=== PATIENT | female | born 1985 | race Caucasian/White ===

== ENCOUNTER 2017-12-01 20:29 | Inpatient (IN) | payer OTHER ==
[2017-12-01 21:21] VITALS: BMI 39.1
[2017-12-01] MEDS ORDERED: Penicillin G 5 Million Unit Vial IVPB ONE ×2 (21:21→22:04)
[2017-12-01] MEDS ORDERED: Lactated Ringer's 1,000 ML IV SCH ×2 (21:30)
[2017-12-01 22:02] LABS: BASO # 0.1 K/uL (0.0-0.2); BASO % 0.6 % (0.0-2.0); EOS # 0.1 K/uL (0.0-0.7); HEMOGLOBIN 12.1 g/dL (11.0-16.0); LYMPH # 2.5 K/uL (1.0-4.3); LYMPH % 20.3 % (20.0-40.0); MEAN CELL VOLUME 83.2 fL (81.0-99.0); MEAN CORPUSCULAR HEMOGLOBIN 28.1 pg (27.0-31.0); MEAN CORPUSCULAR HGB CONC 33.8 g/dL (33.0-37.0); MONO # 0.8 K/uL (0.0-0.8); MONO % 6.6 % (0.0-10.0); NEUT # 8.6 K/uL (1.8-7.0); NEUT % 71.5 % (50.0-75.0); NRBC % 0.2 % (0.0-2.0); RBC 4.3 Mil/uL (3.80-5.20); RED CELL DISTRIBUTION WIDTH 13.8 % (11.5-14.5)
[2017-12-01 22:06] LABS: SQUAMOUS EPITHIAL < 1 /hpf (0-5)
[2017-12-01 22:07] LABS: URINE BILIRUBIN NEGATIVE (NEGATIVE); URINE CLARITY CLEAR (Clear); URINE COLOR YELLOW (YELLOW); URINE GLUCOSE (UA) NEGATIVE (Normal)
[2017-12-01 22:08] LABS: URINE BLOOD LARGE (NEGATIVE); URINE LEUKOCYTE ESTERASE NEGATIVE Leu/uL (Negative); URINE NITRATE NEGATIVE (NEGATIVE); URINE PROTEIN NEGATIVE (NEGATIVE); URINE UROBILINOGEN 0.2 mg/dL (0.2-1.0)
[2017-12-01 22:12] LABS: ALBUMIN 3.5 g/dL (3.5-5.0); ALT/SGPT 17 U/L (9-52); AST/SGOT 17 U/L (14-36); BLOOD UREA NITROGEN 9 mg/dL (7-17); GFR AFRICAN-AMERICAN > 60; GFR NON-AFRICAN AMERICAN > 60
[2017-12-02] MEDS ORDERED: Metoprolol Succinate 25 mg XL Tab PO ONE (01:01)
[2017-12-02] MEDS: Penicillin G Potassium 2.5 MU in Sodium Chloride 0.9% 100 ML IV SCH ×3 (01:58→10:00)
[2017-12-02] MEDS ORDERED: Oxytocin 30 UNIT 30 UNITS/500 ML BAG IV PRN (03:00)
[2017-12-02] MEDS ORDERED: Oxytocin 30 UNIT 30 UNITS/500 ML BAG IV ONE (03:04)
--- NOTE | 2017-12-02 10:12 | OBHP ---
Datetime: 12/02/2017 10:11 Presentation-Admit: Vertex FHR - Baseline A Provider: 135 Amniotic Fluid Color, Provider: Clear Membranes, Provider: Ruptured Vital Signs Provider: Reviewed; Within Normal Limits NICHD Variability Prov Fetus A: Moderate 6-25bpm FHR Category Provider Fetus A: Category I NICHD Decel Fetus A IP Provider: None Dilatation, Provider: 7 Effacement, Provider: 70 Station, Provider: -2 Datetime: 12/01/2017 21:36 IP Adm Impression: Term, intrauterine ; No Active Labor IP Chief Complaint Other: Chr HTN; IP Admit Plan: Admit to unit; Initiate labor augmentation protocol Admit Comment, IP Provider: 32 y.o. , LMP unsure, GERMAN 12/17/17, EGA 37w 5d, Chr HTN; denies heada ches, blured vision, RUQ or epigastric pain. (+) AFM; denies LOF, VB, Ctx. Prenatl care: Dr. Catarina Ramos; chr HTN P Ob: 2007, , female, 10lb 10z; [place]; no GDM; no complications P [employer]: 11 x monthly x 6. 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 PMH: HTN, diagnosed age 30 PSH: denies NKDA Meds: PNV, metoprolol ER 25 mg p.o. - each QD Soc Hx: Denies tobacco , illicit drug or EtOH use. Lives with her daughter and FOB. Works in sales Fam Hx: Mother alive 51 y.o. - HTN, DM. Father - unknown. P.E.: as above. Mildly obese, in NAD. Awake, alert, oriented to time, person and place. Pleasant and cooperative Assessment: 32 y.o. P1, 37w 5d, chr HTN, advanced cervical dilatation. Previous macrosomic . Category 1 tracing. GBS (+). Clincally stable. Plan: 1) Admit 2) NPO 3) IVFs 4) Admission labs 5) Continuous EFM 6) Observe for spontaneous progression of labor 7) Possible augmentation 8) penicillin 9) epidural, upon request 9) anticipate vaginal delivery - as per and discussed with Dr. Ramos @ 37.6 wks c/o of back pain sent to [facility] for evlautin, wtih chronic htn. pt c/o pain q 5-10 m in, slof, vb, ctx, +FM VE 5-6cm admit ot LD npo, ivf admission labs cotoco and eco pain amengnet prn gbs prophuylxia Pelvic Type - PN: Adequate Extremities - PN: Normal Abdomen - PN: Normal Back - PN: Normal Breast - PN: Not Done Lungs - PN: Normal Heart - PN: Normal Thyroid - PN: Not Done Neurologic - PN: Normal HEENT - PN: Normal General - PN: Normal Contraction Comments Provider: none to occasional Comments, ACOG Physical Exam: Abdomen: Obese. Soft. Non tender Perineum: no lesions noted. All other systems reviewed and are negative Gestation - Est Wks by US: 37w 5d NICHD Accel Fetus A IP Provider: [id number] Genitourinary Exam: Normal DTRs - PN: Not Done
[2017-12-02] MEDS ORDERED: Magnesium Sulfate 20 gm 20 GM/500 ML BAG IV SCH (10:30)
--- NOTE | 2017-12-02 10:30 | OBPN ---
Datetime: 12/02/2017 10:11 IP Progress Impression: Normal progression of labor IP Informed Consent Obtain: Vaginal Delivery IP Procedures: Artificial ROM IP Progress Plan: Continue present management Membranes, Provider: Ruptured Amniotic Fluid Color, Provider: Clear FHR - Baseline A Provider: 135 Presentation-Admit: Vertex IP Progress Note Comment: pt seen adn examined s/p epdiural, dneies lof, vb, ctx, +FM VE: /-2 AROM Clera A/P P1 @ _ 38 wks chornic htn in labor -pitocon augmetinon as per protoocl -paina mgent -gbs propnyixls -cont curren tmangent Vital Signs Provider: Reviewed; Within Normal Limits FHR Category Provider Fetus A: Category I NICHD Variability Prov Fetus A: Moderate 6-25bpm Dilatation, Provider: 7 Effacement, Provider: 70 Station, Provider: -2 NICHD Decel Fetus A IP Provider: None Datetime: 12/01/2017 21:36 Contraction Comments Provider: none to occasional Gestation - Est Wks by US: 37w 5d NICHD Accel Fetus A IP Provider: [id number]
[2017-12-02] MEDS ORDERED: Oxycodone/Acetaminophen 5/325 mg Tab PO PRN ×2 (11:34)
[2017-12-02] MEDS ORDERED: Benzocaine/Menthol 20%-0.5% Topical Spray (60 ml) TOP PRN (11:34)
--- NOTE | 2017-12-02 11:43 | OBDS ---
MATERNAL INFORMATION Provider Comments: pt was fully dilated and pushing, aturatic, spontanoeud eliver yof head, loose nu chal cord x 1 reduced. arumta,c spontaneoucs dleuveyr of anteiror followed by posteiore shoulder foll weod yb dleiveyr of body. both oral an dnasal passags of the baby were bulb suctine.d umbilcs cord ws clmape dand cut. baby hadned ot mother on abodmen with rn assisance. cord blood and cord gases colle cted and sent x 2. Fundus firm. good. Spontenaoud delivye rof intact placenta with memebnra. fundus f irm, good hemostais. firs t degre peirenal laceration reapired. good hemostsisa, no complications. live male ifnat agpsar 9,9 weight of7lbs 15 ounces ebl 200 ml no complicaiotns LABOR SUMMARY EDC: 12/17/2017 00:00 No. Babies in Womb: 1 Attempted: No Labor Anesthesia: Epidural LABOR INFORMATION Reason for Induction: Not Applicable Onset of Labor: 12/02/2017 09:04 Oxytocin: Augmentation Group B Beta Strep: Done, Result Unknown Steroids Given: None Reason Steroids Not Administered: Not Applicable MEMBRANES Membranes Rupture Method: Artificial Rupture of Membranes: 12/02/2017 09:04 Amniotic Fluid Color: Clear Amniotic Fluid Amount: Moderate Amniotic Fluid Odor: Normal IDENTIFICATION/MEDS BABY A ID Band Number: [id number] Sensor Number: [id number] ASSESSMENT BABY A Infant Complications: None Infant Complications Other: none
[2017-12-02] MEDS ORDERED: Erythromycin 0.5% Ophth Oint 1 APPLIC/3.5 G ONE (11:48)
[2017-12-02] MEDS ORDERED: Phytonadione 1 mg/0.5 ml Inj (Neonatal) ONE (11:49)
[2017-12-03 08:33] LABS: BASO # 0.1 K/uL (0.0-0.2); BASO % 0.8 % (0.0-2.0); EOS # 0.2 K/uL (0.0-0.7); HEMOGLOBIN 10.9 g/dL (11.0-16.0); LYMPH # 2.5 K/uL (1.0-4.3); LYMPH % 15.9 % (20.0-40.0); MEAN CELL VOLUME 84.7 fL (81.0-99.0); MEAN CORPUSCULAR HEMOGLOBIN 29.7 pg (27.0-31.0); MEAN CORPUSCULAR HGB CONC 35.1 g/dL (33.0-37.0); MEAN PLATELET VOLUME 8.4 fL (7.2-11.7); MONO # 1.1 K/uL (0.0-0.8); MONO % 6.8 % (0.0-10.0); NEUT # 11.7 K/uL (1.8-7.0); NEUT % 75.5 % (50.0-75.0); NRBC % 0.1 % (0.0-2.0); RBC 3.66 Mil/uL (3.80-5.20); RED CELL DISTRIBUTION WIDTH 13.5 % (11.5-14.5); WHITE BLOOD COUNT 15.5 K/uL (4.8-10.8)
[2017-12-03] MEDS ORDERED: Multiple Vitamins Tab PO SCH (10:00)
[2017-12-04 00:09] VITALS: PULSE 87
[2017-12-04 07:54] VITALS: BP 99/54; RESP 18; TEMP 97.3; O2SAT 97
--- NOTE | 2017-12-05 18:23 | OBDCSUM ---
Datetime: 12/04/2017 09:21 Discharge Instructions, Provider: Routine instructions given Discharge Diagnosis, Provider: Term Delivered Follow up in weeks, Provider: 1-2 weeks Contraception discussed, Prov: Yes Discharge Comment, Provider: bp repcauitosn given Discharge Diagnosis Prov Other: chornic htn Contraception after Delivery: Not Planning to Use
--- NOTE | 2017-12-05 18:23 | OBPPN ---
Datetime: 12/05/2017 18:21 PP Pain Prov: Within normal limits PP Nausea Prov: Denies PP Flatus Prov: Yes PP Breasts Prov: Normal PP Heart Prov: Normal PP Lungs Prov: Normal PP Abdomen/Uterus Prov: Normal PP Lochia Prov: Normal PP Vulva/Perineum Prov: Normal PP CVA Tenderness Prov: Normal PP Extremities Prov: Normal PP C/S Incision Prov: Not Applicable PP Progress Prov: Normal PP Impression Prov: Normal progression PP Plan Prov: Discharge PP Progress Note Prov: dealyed entry pt seen adn examiend 12/04/17 report pain controlle,d ambitng, boiding, passing fluatrs, +BM, bresat feeding densi de leon, blurry vision, ruq pqpiesig pain vss eps ee aboe a/p s/p ppd #2 with chornic htn well controled dc home rto 1 week bp radha precitoncal percuaiotn givne IP PP Procedures: None Vital Signs Provider PP: Reviewed; Within Normal Limits
== END 2017-12-04 14:10 | disposition home or self-care (01) | DRG 774 ==
LOC: C.EROB 20:29 → C.4D 20:58 → C.4M 12-02 16:15
PROVIDERS: ADMIT Obstetrics & Gynecology; ATTEND Obstetrics & Gynecology
PROC: 10E0XZZ Delivery of Products of Conception, External Approach (ICD-10-PCS; principal; 2017-12-02)
PROC: 0HQ9XZZ Repair Perineum Skin, External Approach (ICD-10-PCS; 2017-12-02)
PROC: 10907ZC Drainage of Amniotic Fluid, Therapeutic from Products of Conception, Via Natural or Artificial Opening (ICD-10-PCS; 2017-12-02)
DX: O10.02 Pre-existing essential hypertension complicating childbirth (principal); O69.81X0 Labor and delivery complicated by cord around neck, without compression, not applicable or unspecified; O70.0 First degree perineal laceration during delivery; O99.824 Streptococcus B carrier state complicating childbirth; I10 Essential (primary) hypertension; Z3A.37 37 weeks gestation of pregnancy; Z37.0 Single live birth